=== PATIENT | male | born 1980 | race Two or more races ===

== ENCOUNTER 2020-12-14 15:42 | Emergency (ER) | payer MEDICAID ==
[~2020-12-14] VITALS: Ht 177.8 cm; Wt 108.9 kg
--- NOTE | 2020-12-14 15:50 | NUR ---
PT CAME TO ER C/O L FOREARM LACERATION S/P HITTING THE ARM TO A PIECE OF METAL TODAY. DENIES SYNCOPE, DIZZINESS. A&OX4, AMBULATORY, BREATHING EVEN AND UNLABORED, PULSES 2+ BILATERALLY, SKIN WARM AND DRY. LACERATION IS CLEAN CUT, SURROUNDING TISSUE IS NORMAL, WOUND NOT ACTIVELY BLEEDING, BRIGHT RED BLOOD SHOWN.
[2020-12-14] MEDS ORDERED: LIDOCAINE 1%-EPI 1:100,000 20 ML VIAL ONE (15:58)
[2020-12-14] MEDS ORDERED: SULFAMETH/TRIMETH 800/160 MG 1 UDTAB TABLET ONE (15:59)
[2020-12-14] MEDS ORDERED: TDAP [DIPH/PERTUSSIS/TET] 0.5 ML VIAL IM ONE ×2 (16:00)
[2020-12-14] MEDS ORDERED: SULFAMETH/TRIMETH 800/160 MG 1 UDTAB TABLET PO ONE (16:00)
[2020-12-14] MEDS ORDERED: LIDOCAINE 1%-EPI 1:100,000 20 ML VIAL TP ONE (16:00)
--- NOTE | 2020-12-14 16:45 | NUR ---
Patient discharged to home in stable condition. Written and verbal after care instructions given. Patient verbalizes understanding of instruction.
[2020-12-14 16:53] VITALS: BP 122/76
== END 2020-12-14 16:45 | disposition home or self-care (01) ==
LOC: ER 15:45
DX: S51.812A Laceration without foreign body of left forearm, initial encounter (principal); W26.8XXA Contact with other sharp object(s), not elsewhere classified, initial encounter; Y93.E8 Activity, other personal hygiene; Y92.59 Other trade areas as the place of occurrence of the external cause; Y99.8 Other external cause status
CPT/HCPCS: 12004; 90471; 90715; 99283; A6403; J3490